=== PATIENT | male | born 1955 | race Caucasian/White ===

== ENCOUNTER 2025-03-20 17:09 | Emergency (ER) | payer MEDICARE, OTHER | END 2025-03-20 17:58 | disposition home or self-care (01) | LOC: FB.ED 17:09 → MERGE 17:09 → FB.ED 17:58 | DX: S01.512A Laceration without foreign body of oral cavity, initial encounter (principal); Z88.5 Allergy status to narcotic agent; Z79.899 Other long term (current) drug therapy; W22.8XXA Striking against or struck by other objects, initial encounter | CPT/HCPCS: 99282 ==